=== PATIENT | male | born 1960 | race Caucasian/White ===

== ENCOUNTER 2019-04-19 11:22 | Outpatient (CLI) | payer OTHER ==
--- NOTE | 2019-04-19 11:53 | RAD ---
TWO VIEW SKULL: HISTORY: MRI clearance. Metal in eye. COMPARISON: None. FINDINGS: Intact calvarium. Symmetric aeration of the sinuses and mastoid air cells. There does not appear to be a metallic density projecting over either orbit. IMPRESSION: No radiopaque metallic density projecting over either orbit. Transcribed Date/Time: 04/19/2019 12:22 PM
--- NOTE | 2019-04-19 13:15 | MRI ---
CERVICAL SPINE MRI NONCONTRAST: Date: 04/19/19 INDICATION: Neck pain, right upper extremity radiculopathy. No prior comparison. FINDINGS: There is motion artifact limiting assessment. Reversal of normal cervical curvature present with foca l kyphosis centered at the C5 level. There is multilevel degenerative marrow signal alteration of the cervical vertebra centered at the end plates, consistent with Modic Type II degenerative change. Deg enerative hypertrophy at C1-2 level is present with slight effacement of ventral thecal sac. C2-3: There is no high grade central canal stenosis. There is mild left foraminal narrowing on the b asis of uncinate process hypertrophy. No significant right foraminal stenosis. C3-4: Asymmetric right broad based disc osteophyte and uncinate process hypertrophy result in mild c entral canal stenosis, and there is moderate bilateral neural foraminal stenosis. C4-5: Asymmetric broad based disc osteophyte to the right results in mild to moderate central canal stenosis with mild ventral cord flattening. There is uncinate process hypertrophy with moderate right and mild left neural foraminal narrowing. C5-6: Broad based disc osteophyte with moderate central canal stenosis and ventral cord flattening p resent. There is moderate left and mild to moderate right neural foraminal stenosis when combined wit h uncinate process and facet hypertrophy. C6-7: Right asymmetric disc osteophyte complex and superimposed right subarticular disc protrusion p resent with impingement of the right C7 nerve root and moderate to severe right neural foraminal sten osis. There is moderate left foraminal stenosis on the basis of uncinate process and facet hypertroph y. C7-T1: No significant stenosis. Motion artifact degrades cord signal and thus limits evaluation in this regard. IMPRESSION: Multilevel degenerative change throughout the cervical spine as outlined above. POS: [facility]
== END 2019-04-19 11:23 | disposition home or self-care (01) ==
LOC: MRI 11:22
PROVIDERS: ATTEND Physical Medicine & Rehabilitation
DX: M48.02 Spinal stenosis, cervical region (principal); R20.0 Anesthesia of skin; M47.812 Spondylosis without myelopathy or radiculopathy, cervical region
CPT/HCPCS: 70250; 72141

== ENCOUNTER 2019-08-26 09:57 | Outpatient (CLI) | payer OTHER ==
--- NOTE | 2019-08-26 11:11 | MRI ---
MRI of thebrain: 08/26/2019 COMPARISON:None available HISTORY:Dementia, memory loss, behavioral disturbance TECHNIQUE: Multiplanar multisequence MR imaging of thebrain with and without contrast Findings:The diffusion weighted imaging demonstrates no evidence for acute infarction. The axial gradient echo imaging demonstrates no evidence for intracranial hemorrhage. There are a few scattered subcentimeter foci of increased T2 and FLAIR signal within the bifrontal wh ite matter suggesting minimal small vessel disease. No significant cerebral volume loss. No midline shift or mass effect. Arterial flow voids at the axial level of the skull base appear grossly unremarkable on the T2-weight ed imaging. The postcontrast imaging demonstrates no abnormal enhancement within the brain parenchyma. Regional bone marrow signal intensity appears grossly unremarkable. IMPRESSION:No acute findings. Incidental findings as detailed above.
[2019-08-26] MEDS ORDERED: Magnevist 469MG/ML 20 ML VIAL ONE (13:47)
== END 2019-08-26 09:58 | disposition home or self-care (01) ==
LOC: BICMRI 09:57
PROVIDERS: ATTEND Psychiatry & Neurology Neurology
DX: F03.90 Unspecified dementia, unspecified severity, without behavioral disturbance, psychotic disturbance, mood disturbance, and anxiety (principal)
CPT/HCPCS: 70553; A9579

== ENCOUNTER 2019-09-10 11:56 | Outpatient (CLI) | payer OTHER ==
--- NOTE | 2019-09-10 12:21 | RAD ---
CERVICAL SPINE 4 VIEWS: Date: 09/10/2019 HISTORY: Cervical disc disorder. FINDINGS: There are moderate degenerative changes noted. There are anterior osteophytes in the cervical vertebr a. Loss of disc space at the C5-6 level. Slight posterolisthesis at C5-6 with posterior spondylosis. This posterolisthesis appears to exacerbate slightly with extension. IMPRESSION: Degenerative changes of the cervical spine, most prominent at C5-6 level. POS: [facility]
== END 2019-09-10 11:57 | disposition home or self-care (01) ==
LOC: BICRAD 11:56
PROVIDERS: ATTEND Neurological Surgery
DX: M50.10 Cervical disc disorder with radiculopathy, unspecified cervical region (principal); M47.22 Other spondylosis with radiculopathy, cervical region
CPT/HCPCS: 72050

== ENCOUNTER 2019-10-16 12:26 | Outpatient (CLI) | payer OTHER ==
--- NOTE | 2019-10-16 12:59 | RAD ---
EXAM: Two views chest PROVIDED CLINICAL HISTORY: Preoperative evaluation. COMPARISON: None FINDINGS: Cardiac silhouette and pulmonary vasculature are within normal limits. The lungs are clear. The osse ous structures have a normal appearance. IMPRESSION: No acute cardiopulmonary process.
== END 2019-10-16 12:27 | disposition home or self-care (01) ==
LOC: BICRAD 12:26
PROVIDERS: ATTEND Urology
DX: Z01.818 Encounter for other preprocedural examination (principal)
CPT/HCPCS: 36415; 71046; 80053; 85025; 85610; 85730

== ENCOUNTER 2019-11-05 07:50 | Outpatient (CLI) | payer OTHER ==
[2019-11-05 12:55] LABS: Hemoglobin 14.8 g/dL (14.0-18.0); Mean Corpuscular HGB CONC 33.6 g/dL (32.0-36.0); Mean Corpuscular Hemoglobin 29.8 pg (27.0-31.0); Mean Corpuscular Volume 88.7 fL (78.0-98.0); Mean Platelet Volume 8.3 fL (7.4-10.4); Platelet Count 225 thou/uL (130-400); RBC Distribution Width 11.8 % (11.5-14.5); Red Blood Cell (RBC) Count 4.97 mill/uL (4.70-6.10); White Blood Cell (WBC) Count 8.7 thou/uL (4.8-10.8)
[2019-11-05 13:00] LABS: INR-International Normal Ratio 0.9; Prothrombin Time 11.7 sec (12.0-14.7)
[2019-11-05 13:01] LABS: PTT 33.1 sec (22.9-36.1)
[2019-11-05 17:47] LABS: SARS-CoV-2 MS2 Positive; SARS-CoV-2 N Gene Negative; SARS-CoV-2 S Gene Negative; SARS-CoV-2 orf1ab Negative
== END 2019-11-05 07:51 | disposition home or self-care (01) ==
LOC: LABBT 07:50
PROVIDERS: ATTEND Neurological Surgery
DX: Z01.812 Encounter for preprocedural laboratory examination (principal); Z11.59 Encounter for screening for other viral diseases; M54.16 Radiculopathy, lumbar region
CPT/HCPCS: 85027; 85610; 85730; 87635; U0003

== ENCOUNTER 2019-11-07 05:47 | Day surgery (SDC) | payer OTHER ==
[2019-11-05 11:47] VITALS: BMI 36.0
[2019-11-07] MEDS ORDERED: Thrombin 5000 UNITS/5 ML VIAL ONE (06:13)
[2019-11-07] MEDS ORDERED: Fentanyl 100 MCG/2 ML VIAL ONE ×4 (06:56→10:14)
[2019-11-07] MEDS ORDERED: Prochlorperazine 10 MG/2 ML VIAL IM PRN (09:38)
[2019-11-07] MEDS ORDERED: Morphine 2 MG/ML SYRINGE SLOW IVP PRN (09:38)
[2019-11-07] MEDS ORDERED: Acetaminophen/Codeine 30-300mg Tablet PO PRN (09:38)
[2019-11-07] MEDS ORDERED: Acetaminophen 325 MG TAB PO PRN (09:38)
[2019-11-07] MEDS ORDERED: HYDROcodone/Acetaminophen 7.5/325 mg Tablet PO PRN (09:38)
[2019-11-07] MEDS ORDERED: Promethazine 25 MG TAB PO PRN (09:38)
[2019-11-07] MEDS ORDERED: Ondansetron PF 4 MG/2 ML Vial IVP PRN (09:38)
[2019-11-07] MEDS ORDERED: Mag-Al 1200 mg/1200 mg/30 ML UDCUP PO PRN (09:38)
[2019-11-07] MEDS ORDERED: tiZANidine HCl 4 MG TAB PO PRN (09:38)
[2019-11-07] MEDS ORDERED: diphenhydrAMINE 25 MG CAP PO PRN (09:38)
[2019-11-07] MEDS ORDERED: Sodium Chloride 0.9% 1,000 ML IV SCH (09:45)
[2019-11-07] MEDS ORDERED: Tamsulosin HCl 0.4 MG CAP ONE (10:07)
--- NOTE | 2019-11-07 10:11 | OP ---
DATE OF PROCEDURE: 11/07/2019 OYSTER TONGER: Zion De Souza PA-C PREOPERATIVE INDICATION: Treat pain, prevent neurological deterioration. PREOPERATIVE DIAGNOSIS: Cervical intervertebral disk disease at C6-7 with right-sided C7 radiculopathy. POSTOPERATIVE DIAGNOSIS: Cervical intervertebral disk disease at C6-7 with right-sided C7 radiculopathy. OPERATIVE PROCEDURES: Anterior cervical diskectomy, intervertebral arthrodesis, placement of intervertebral biomechanical device, anterior cervical plating at C6-C7, local morselized autograft, morselized allograft, operating microscope. PREOPERATIVE MEDICATION: Ancef 2 g IV. DRAIN NUMBER: Zero. DRAIN TYPE: None DESCRIPTION OF PROCEDURE: The patient was brought to the operating room where general endotracheal anesthesia was induced. The patient was carefully positioned on the operative table with his head supported by a gel-filled donut-shaped headrest. A lateral fluoro radiograph was used to plan our incision. The right side of the neck was sterilely prepped and draped. We opened with a 10 blade knife and we controlled bleeding with bipolar cautery. We dissected sharply to the platysma and we cut this muscle in line with our incision. We continued our dissection medial to the sternocleidomastoid and lateral to the trachea and esophagus. We arrived at the prevertebral space. We placed a marker at C5-6 into the lateral fluoro radiograph to verify levels. We counted down to C6-7 and elevated the longus colli muscles off the anterior surface of C6 and C7, and placed a self-retaining retractor beneath them. Distraction pins were placed at the C6 and C7 vertebral bodies. We distracted across the intervening interspace with the Odin distractor. We incised the interspace with a 15 blade knife and removed disk contents using curettes and rongeurs. As we approached the posterior longitudinal ligament, we brought the operative microscope into the field. Under microscopic magnification and using microsurgical techniques, we removed the remainder of the intervertebral disk. We accessed the ventral epidural space with a micro curette, and used Kerrison rongeurs to remove posterior osteophytes and posterior longitudinal ligament across the entire interspace from one neuroforamen to the other. There was a generous amount of intervertebral disk herniation on the right side compressing the C7 nerve root foramen. This was well decompressed at the completion of our diskectomy. We turned our attention to arthrodesis. Using curettes, we prepared the endplates for grafting. We measured the height of the interspace to 8 mm with a bone rasp. An 8 mm PEEK intervertebral graft was brought into the field. Osteophytes removed. During our decompression, we cleaned of soft tissue attachments, morselized and added into demineralized bone matrix as our fusion substrate. The substrate was packed in the center of the PEEK graft. The graft was advanced into the interspace under radiographic guidance to the appropriate depth. We removed our distraction pins and the operating microscope. A 14 mm anterior cervical plate was brought into the field. We drilled forestry pilot holes through the plate into the vertebral bodies at C6 and C7, and affixed the plate with 14 mm screws. Fixed angle screws were used at C7 and variable angle screws at C6. We engaged the locking mechanism over each of the 4 screws. AP and lateral fluoro radiographs confirmed adequate positioning of our instrumentation. We irrigated copiously with bacitracin irrigation. We closed the wound in anatomic layers and applied a sterile dressing. This was a clean case, no contamination. Job ID: [id number]
[2019-11-07] MEDS ORDERED: Lidocaine 1% PF 5 ML VIAL ONE (13:43)
[2019-11-07] MEDS ORDERED: Dexamethasone 20 MG/5 ML VIAL ONE (13:43)
[2019-11-07] MEDS ORDERED: Ondansetron PF 4 MG/2 ML Vial ONE (13:43)
[2019-11-07] MEDS ORDERED: PROPOFOL 200 MG/20 ML VIAL ONE (13:43)
[2019-11-07] MEDS ORDERED: Glycopyrrolate 0.2 MG/ML 5 ML SYRINGE ONE (13:43)
[2019-11-07] MEDS ORDERED: Rocuronium Bromide 10 MG/ML (10ML VIAL) ONE (13:43)
[2019-11-07] MEDS ORDERED: HYDROcodone/Acetaminophen 5/325 mg Tablet ONE (13:48)
[2019-11-07] MEDS ORDERED: CEFAZOLIN 2 GM in Premix Bag 1 BAG IVPB SCH (14:00)
[2019-11-07] MEDS ORDERED: Gabapentin 300 MG CAP PO SCH (21:00)
[2019-11-08] MEDS ORDERED: Tamsulosin HCl 0.4 MG CAP PO SCH (06:00)
== END 2019-11-07 14:10 | disposition home or self-care (01) ==
LOC: SDC 05:47
PROVIDERS: ATTEND Neurological Surgery
PROC: 0RT30ZZ Resection of Cervical Vertebral Disc, Open Approach (ICD-10-PCS; principal; 2019-11-07)
PROC: 0RG10A0 Fusion of Cervical Vertebral Joint with Interbody Fusion Device, Anterior Approach, Anterior Column, Open Approach (ICD-10-PCS; principal; 2019-11-07)
DX: M50.123 Cervical disc disorder at C6-C7 level with radiculopathy (principal); M19.90 Unspecified osteoarthritis, unspecified site; Z79.899 Other long term (current) drug therapy
CPT/HCPCS: 76000; C1713; C1776; J0690; J1100; J2001; J2405; J2704; J3010

== ENCOUNTER 2020-01-03 09:46 | Outpatient (CLI) | payer OTHER ==
--- NOTE | 2020-01-03 10:15 | RAD ---
Exam: 3 views cervical spine HISTORY: Cervical myelopathy. Previous cervical fusion Comparison none FINDINGS: AP, lateral swimmer's view demonstrate a anterior fusion plate with transvertebral body scr ew at C6-C7. No perihardware lucency. C6-C7 disc prosthesis. Moderate severe degenerative disc disease at C5-6 Straightening of cervical lordosis. No fractures. Predental space is normal. No prevertebral soft tissue swelling. IMPRESSION: Complicated cervical fusion at C5-6-C7
== END 2020-01-03 09:47 | disposition home or self-care (01) ==
LOC: BICRAD 09:46
PROVIDERS: ATTEND Neurological Surgery
DX: M50.00 Cervical disc disorder with myelopathy, unspecified cervical region (principal); Z98.1 Arthrodesis status
CPT/HCPCS: 72040

== ENCOUNTER 2022-01-27 08:43 | Outpatient (CLI) | payer OTHER ==
[2022-01-27 10:59] LABS: #Basophils 0.1 10x3/uL (0.0-0.2); #Eosinphils 0.1 10x3/uL (0.0-0.5); #Monocytes 0.6 10x3/uL (0.0-1.1); #Neutrophils 5.8 10x3/uL (1.5-8.4); %Basophils 0.9 % (0.0-2.0); %Eosinophils 1.6 % (0.0-6.0); %Lymphocytes 18.6 % (18.0-47.0); %Monocytes 7.1 % (0.0-10.0); %Neutrophils 71.3 % (40.0-75.0); Hemoglobin 15.1 g/dL (13.5-17.5); Mean Corpuscular HGB CONC 33.6 g/dL (32.0-36.0); Mean Corpuscular Hemoglobin 29.5 pg (27.0-33.0); Mean Corpuscular Volume 87.9 fl (81.2-95.1); Mean Platelet Volume 10.5 fl (7.4-10.4); Platelet Count 266 10x3/uL (150-450); RBC Distribution Width 12.5 % (11.5-14.5); Red Blood Cell (RBC) Count 5.11 10x6/uL (4.32-5.72); White Blood Cell (WBC) Count 8.2 10x3/uL (3.5-10.5)
[2022-01-27 11:25] LABS: Anion Gap 12 mmol/L (10-20); BUN (Urea Nitrogen) 17 mg/dL (8.4-25.7); Calc. Creatinine Clearance 0 mL/min (70-130); Calcium 9.5 mg/dL (7.8-10.44); Carbon Dioxide 28 mmol/L (22-29); Chloride 105 mmol/L (98-107); Estimated GFR 86; Glucose 92 mg/dL (70-105); INR-International Normal Ratio 0.9; Potassium 4.4 mmol/L (3.5-5.1); Prothrombin Time 10.3 sec (9.5-12.1); Sodium 141 mmol/L (136-145)
== END 2022-01-27 08:44 | disposition home or self-care (01) ==
LOC: LABBT 08:43
PROVIDERS: ATTEND Orthopaedic Surgery
DX: Z01.818 Encounter for other preprocedural examination (principal); M16.12 Unilateral primary osteoarthritis, left hip; Z20.822 Contact with and (suspected) exposure to COVID-19
CPT/HCPCS: 80048; 85025; 85610; 87081; 87811; 93005; 93010

== ENCOUNTER 2022-02-01 07:05 | Observation (INO) | payer OTHER ==
[2022-01-28 15:41] VITALS: BMI 33.9
[2022-02-01] MEDS ORDERED: Vancomycin (BATCH) 1.5 GRAM/300 ML BAG ONE (07:55)
[2022-02-01] MEDS ORDERED: Tranexamic Acid 1,000 MG/10 ML VIAL ONE (07:55)
[2022-02-01] MEDS ORDERED: Sodium Chloride 0.9% 100 ML ONE ×2 (07:55→08:56)
[2022-02-01] MEDS ORDERED: Fentanyl 100 MCG/2 ML VIAL ONE (08:05)
[2022-02-01] MEDS ORDERED: Midazolam HCl 2 mg/2 ml Vial ONE (08:05)
[2022-02-01] MEDS ORDERED: Lidocaine 1% MPF 2 ML VIAL ONE (08:07)
[2022-02-01] MEDS ORDERED: HYDROmorphone 2 MG/ML VIAL ONE (08:19)
[2022-02-01] MEDS ORDERED: CEFAZOLIN 2 GM VIAL ONE (08:56)
[2022-02-01] MEDS ORDERED: diphenhydrAMINE 25 MG CAP PO PRN ×2 (09:24→13:00)
[2022-02-01] MEDS ORDERED: Zolpidem Tartrate 5 MG TAB PO PRN ×2 (09:24→13:00)
[2022-02-01] MEDS ORDERED: Promethazine HCl 25 MG/ML VIAL IM PRN ×2 (09:24→13:00)
[2022-02-01] MEDS ORDERED: Acetaminophen 325 MG TAB PO PRN (09:24)
[2022-02-01] MEDS ORDERED: Ondansetron PF 4 MG/2 ML Vial IVP PRN ×2 (09:24→13:00)
[2022-02-01] MEDS ORDERED: Rocuronium Bromide 10 MG/ML (10ML VIAL) ONE (09:33)
[2022-02-01] MEDS ORDERED: ePHEDrine 50 MG/ML VIAL ONE (09:33)
[2022-02-01] MEDS ORDERED: Ketorolac Tromethamine 30 MG/ML VIAL ONE (09:33)
[2022-02-01] MEDS ORDERED: Bupivacaine HCl 0.5%/Epinephrine 1:200,000/PF 30 ml Vial ONE (09:33)
[2022-02-01] MEDS ORDERED: Ondansetron PF 4 MG/2 ML Vial ONE (09:33)
[2022-02-01] MEDS ORDERED: Labetalol HCl 100 MG/20 ML VIAL ONE (09:33)
[2022-02-01] MEDS ORDERED: PROPOFOL 200 MG/20 ML VIAL ONE (09:33)
[2022-02-01] MEDS ORDERED: Dexamethasone 20 MG/5 ML VIAL ONE (09:33)
[2022-02-01] MEDS ORDERED: Lidocaine 1% PF 5 ML VIAL ONE (09:33)
[2022-02-01] MEDS ORDERED: SUGAMMADEX SODIUM 200 MG/2 ML VIAL ONE (11:07)
[2022-02-01] MEDS ORDERED: Meperidine HCl/PF 25 MG/ML VIAL SLOW IVP PRN (11:45)
[2022-02-01] MEDS ORDERED: HYDROmorphone 2 MG/ML VIAL SLOW IVP PRN (11:45)
[2022-02-01] MEDS ORDERED: Promethazine HCl 25 MG/ML VIAL IVPB PRN (11:45)
[2022-02-01] MEDS ORDERED: fentaNYL Citrate/PF 100 MCG/2 ML SYRINGE ONE ×2 (11:48→12:48)
[2022-02-01] MEDS ORDERED: HYDROmorphone 0.5 MG/0.5 ML SYRINGE ONE ×2 (11:58→12:19)
[2022-02-01] MEDS ORDERED: diphenhydrAMINE 50 MG/ML VIAL IM/IV PRN (13:00)
[2022-02-01] MEDS ORDERED: Fentanyl CADD 100 ML IVPB SCH (13:00)
[2022-02-01] MEDS ORDERED: Naloxone HCl 0.4 mg/ml Vial IV PRN (13:00)
[2022-02-01] MEDS: Sodium Chloride 0.9% 1,000 ML IV SCH ×2 (18:49→19:30)
[2022-02-01] MEDS: Acetaminophen 500 MG TAB PO SCH ×2 (18:50→23:53)
[2022-02-01] MEDS: CEFAZOLIN 2 GM in Sodium Chloride 0.9% 100 ML IVPB SCH (18:52)
[2022-02-01] MEDS ORDERED: Vancomycin HCl 1.5 GM in Sodium Chloride 0.9% 250 ML 300 ML IVPB SCH (20:00)
[2022-02-01] MEDS: Senokot S 8.6-50 MG TAB PO SCH (21:36)
[2022-02-01] MEDS: Aspirin 81 mg Enteric Coated Tablet PO SCH (21:36)
[2022-02-01] MEDS: Ferrous Gluconate 324 MG TAB PO SCH (21:37)
[2022-02-02] MEDS: CEFAZOLIN 2 GM in Sodium Chloride 0.9% 100 ML IVPB SCH (02:10)
[2022-02-02] MEDS: Acetaminophen 500 MG TAB PO SCH ×3 (05:31→17:28)
[2022-02-02] MEDS: Sodium Chloride 0.9% 1,000 ML IV SCH ×3 (05:33→23:52)
[2022-02-02 06:00] LABS: Hemoglobin 11.6 g/dL (14.0-18.0); Mean Corpuscular HGB CONC 33.2 g/dL (32.0-36.0); Mean Corpuscular Hemoglobin 30.4 pg (27.0-31.0); Mean Corpuscular Volume 91.5 fL (78.0-98.0); Platelet Count 225 thou/uL (130-400); RBC Distribution Width 11.8 % (11.5-14.5); Red Blood Cell (RBC) Count 3.81 mill/uL (4.70-6.10)
[2022-02-02 06:05] LABS: Hemoglobin A1c 5.5 % (4.0-6.0)
[2022-02-02 06:27] LABS: ALT (SGPT) 14 U/L (8-55); AST (SGOT) 37 U/L (5-34); Albumin 3.2 g/dL (3.5-5.0); Alkaline Phosphatase 56 U/L (40-110); Anion Gap 11 mmol/L (10-20); BUN (Urea Nitrogen) 18 mg/dL (8.4-25.7); Bilirubin, Total 0.6 mg/dL (0.2-1.2); Calc. Creatinine Clearance 101 mL/min (70-130); Calcium 8.6 mg/dL (7.8-10.44); Carbon Dioxide 29 mmol/L (22-29); Cardiac Risk 6.4 (Less than 4.5); Chloride 103 mmol/L (98-107); Cholesterol 179 mg/dl (< 200 Desired); Estimated GFR 81; Globulin 2.4 g/dL (2.4-3.5); Glucose 118 mg/dL (70-105); HDL Cholesterol 28 mg/dL (>60 Neg Risk); LDL Cholesterol, Calculated 111 mg/dL; Potassium 4.1 mmol/L (3.5-5.1); Protein, Total 5.6 g/dL (6.0-8.3); Sodium 139 mmol/L (136-145); Triglycerides 200 mg/dL (Less than 150)
[2022-02-02] MEDS: CeleCOXIB 100 MG CAP PO SCH (09:02)
[2022-02-02] MEDS: Aspirin 81 mg Enteric Coated Tablet PO SCH ×2 (09:02→20:11)
[2022-02-02] MEDS: Ferrous Gluconate 324 MG TAB PO SCH ×2 (09:02→20:11)
[2022-02-02] MEDS: Senokot S 8.6-50 MG TAB PO SCH ×2 (09:02→20:11)
[2022-02-02] MEDS: Multivitamin W/ Minerals 1 TAB PO SCH (09:02)
[2022-02-02] MEDS ORDERED: HYDROcodone/Acetaminophen 10/325 mg Tablet PO ONE (10:43)
[2022-02-02] MEDS ORDERED: HYDROcodone/Acetaminophen 10/325 mg Tablet PO SCH (12:00)
[2022-02-02] MEDS: HYDROcodone/Acetaminophen 10/325 mg Tablet PO PRN ×3 (15:54→23:57)
[2022-02-02] MEDS ORDERED: Cyanocobalamin (Vitamin B-12) 1,000 MCG TAB PO SCH (21:00)
[2022-02-02] MEDS: Acetaminophen 325 MG TAB PO SCH (23:56)
[2022-02-03] MEDS: HYDROcodone/Acetaminophen 10/325 mg Tablet PO PRN ×2 (04:10→08:41)
[2022-02-03] MEDS ORDERED: Morphine 2 MG/ML VIAL SLOW IVP SCH (04:45)
[2022-02-03] MEDS: Acetaminophen 325 MG TAB PO SCH (05:02)
[2022-02-03 06:29] LABS: Hemoglobin 11.4 g/dL (14.0-18.0); Mean Corpuscular HGB CONC 33.1 g/dL (32.0-36.0); Mean Corpuscular Hemoglobin 30.2 pg (27.0-31.0); Mean Corpuscular Volume 91.4 fL (78.0-98.0); Mean Platelet Volume 7.8 fL (7.4-10.4); Platelet Count 195 thou/uL (130-400); RBC Distribution Width 11.8 % (11.5-14.5); Red Blood Cell (RBC) Count 3.77 mill/uL (4.70-6.10); White Blood Cell (WBC) Count 12.6 thou/uL (4.8-10.8)
[2022-02-03] MEDS: Ferrous Gluconate 324 MG TAB PO SCH (08:41)
[2022-02-03] MEDS: CeleCOXIB 100 MG CAP PO SCH (08:41)
[2022-02-03] MEDS: Aspirin 81 mg Enteric Coated Tablet PO SCH (08:41)
[2022-02-03] MEDS: Senokot S 8.6-50 MG TAB PO SCH (08:41)
[2022-02-03] MEDS: Multivitamin W/ Minerals 1 TAB PO SCH (08:41)
[2022-02-03 08:54] VITALS: BP 106/63; TEMP 98.4
== END 2022-02-03 09:40 | disposition home or self-care (01) ==
LOC: SDC 07:05 → SURG A 14:04
PROVIDERS: ADMIT Orthopaedic Surgery; ATTEND Orthopaedic Surgery
PROC: 3E0T3BZ Introduction of Anesthetic Agent into Peripheral Nerves and Plexi, Percutaneous Approach (ICD-10-PCS; principal; 2022-02-01)
PROC: 0SRB04A Replacement of Left Hip Joint with Ceramic on Polyethylene Synthetic Substitute, Uncemented, Open Approach (ICD-10-PCS; 2022-02-01)
DX: M16.12 Unilateral primary osteoarthritis, left hip (principal); G89.29 Other chronic pain; M54.2 Cervicalgia; N18.2 Chronic kidney disease, stage 2 (mild); E53.8 Deficiency of other specified B group vitamins; E66.9 Obesity, unspecified; Z68.33 Body mass index [BMI] 33.0-33.9, adult; Z79.899 Other long term (current) drug therapy; Z98.1 Arthrodesis status
CPT/HCPCS: 36415; 72170; 80053; 80061; 83036; 85027; C1776; J0690; J1100; J1170; J1885; J2250; J2270; J2405; J2704; J3010; J3370; J3490; J7050

== ENCOUNTER 2023-04-04 13:51 | Outpatient (CLI) | payer OTHER | END 2023-04-04 13:52 | disposition home or self-care (01) | LOC: BICRAD 13:51 | PROVIDERS: ATTEND Neurological Surgery | DX: M54.50 Low back pain, unspecified (principal); M47.816 Spondylosis without myelopathy or radiculopathy, lumbar region; M43.17 Spondylolisthesis, lumbosacral region | CPT/HCPCS: 72120 ==

== ENCOUNTER 2023-06-23 10:20 | Outpatient (CLI) | payer OTHER | END 2023-06-23 10:21 | disposition home or self-care (01) | LOC: SCSMRI 10:20 | PROVIDERS: ATTEND Family Medicine | DX: R41.3 Other amnesia (principal) | CPT/HCPCS: 70553 ==

== ENCOUNTER 2024-06-21 12:51 | Outpatient (CLI) | payer OTHER | END 2024-06-21 12:52 | disposition home or self-care (01) | LOC: BICMRI 12:51 | PROVIDERS: ATTEND Orthopaedic Surgery | DX: M47.26 Other spondylosis with radiculopathy, lumbar region (principal); M54.50 Low back pain, unspecified; M48.07 Spinal stenosis, lumbosacral region; M48.061 Spinal stenosis, lumbar region without neurogenic claudication; M43.16 Spondylolisthesis, lumbar region | CPT/HCPCS: 72148 ==